=== PATIENT | male | born 1980 | race American Indian/Alaskan Native ===

== ENCOUNTER 2017-03-02 11:33 | Emergency (ER) | payer MEDICAID ==
[2017-03-02 11:37] VITALS: RESP 18
[2017-03-02] MEDS ORDERED: Lidocaine 5% Patch TD STA (12:15)
[2017-03-02] MEDS ORDERED: Lidocaine 5% Patch TD ONE (12:19)
--- NOTE | 2017-03-02 12:42 | C.PDOC ---
History Of Present Illness 36 year old male, with a history of bulging disc many years ago, presents to the ED with complaints of right lower back pain exacerbated by movement for months. Patient denies use of medication for pain, saddle anesthesia, bowel or bladder incontinence, or recent trauma. denies numbness and tingling. no le weakness. Time Seen by Provider: 03/02/17 11:59 Chief Complaint (Nursing): Back Pain History Per: Patient History/Exam Limitations: no limitations Onset/Duration Of Symptoms: Persistent ("months" ) Current Symptoms Are (Timing): Still Present Quality Of Discomfort: "Pain" Previous Symptoms: Back Pain (bulging disc) Associated Symptoms: None Exacerbating Factor(s): Movement Recent travel outside of the [place]: No Past Medical History Reviewed: Historical Data, Nursing Documentation, Vital Signs Vital Signs: Last Vital Signs Temp 97.9 F 03/02/17 13:03 Pulse 61 03/02/17 13:03 Resp 18 03/02/17 13:03 BP 117/77 03/02/17 13:03 Pulse Ox 97 03/02/17 23:25 Family History: States: Unknown Family Hx - Social History Hx Alcohol Use: Yes Hx Substance Use: No - Immunization History Hx Tetanus Toxoid Vaccination: Yes Hx Influenza Vaccination: No Hx Pneumococcal Vaccination: No Review Of Systems Constitutional: Negative for: Fever, Chills Cardiovascular: Negative for: Chest Pain Respiratory: Negative for: Shortness of Breath Gastrointestinal: Negative for: Nausea, Vomiting Genitourinary: Negative for: Dysuria, Hematuria Musculoskeletal: Positive for: Back Pain Neurological: Negative for: Weakness, Numbness Physical Exam - Physical Exam Appears: Non-toxic, No Acute Distress Skin: Warm Head: Atraumatic Eye(s): bilateral: Normal Inspection, PERRL, EOMI Oral Mucosa: Moist Neck: No Midline Cervical Tenderness, Supple Gastrointestinal/Abdominal: Soft, No Tenderness, No Distention, No Guarding, No Rebound Back: No Vertebral Tenderness, Muscle Spasm (right paralumbar muscle spasm palpated ) Extremity: Normal ROM, No Tenderness, No Calf Tenderness, Capillary Refill ( good capillary refill, less than two seconds ), No Swelling Neurological/Psych: Oriented x3, Normal Speech, Normal Cognition, Normal Motor, Normal Sensation Gait: Steady ED Course And Treatment O2 Sat by Pulse Oximetry: 97 (room air ) Progress Note: Patient was given Flexeril, Motrin, and Lidoderm was applied. Disposition Counseled Patient/Family Regarding: Diagnosis, Need For Followup, Rx Given - Disposition Referrals: [facility] [Outside] Disposition: HOME/ ROUTINE Disposition Time: 12:39 Condition: STABLE Additional Instructions: Remove patch after 12 hours. Take ibuprofen and muscle relaxant as prescribed. The muscle relaxant makes you sleepy. Avoid heavy lifting. Follow up in Medical Clinic. Prescriptions: Cyclobenzaprine [Cyclobenzaprine HCl] 10 mg PO Q8 #9 tab Ibuprofen [Motrin] 600 mg PO TID #30 tab Instructions: Muscle Spasm (ED) Forms: [facility] (Kosovan), General Discharge Instructions - Clinical Impression Clinical Impression: Muscle spasm of back - PA / PHOTO TECHNICIAN / Resident Statement MD/DO has reviewed & agrees with the documentation as recorded. - Scribe Statement The provider has reviewed the documentation as recorded by the Scribe Luisana [place] All medical record entries made by the Scribe were at my direction and personally dictated by me. I have reviewed the chart and agree that the record accurately reflects my personal performance of the history, physical exam, medical decision making, and the department course for this patient. I have also personally directed, reviewed, and agree with the discharge instructions and disposition.
[2017-03-02 13:04] VITALS: BP 117/77; PULSE 61; TEMP 97.9
[2017-03-02 15:31] VITALS: O2SAT 97
== END 2017-03-02 13:00 | disposition home or self-care (01) ==
LOC: C.ER 11:33
DX: M62.830 Muscle spasm of back (principal)